=== PATIENT | male | born 1950 | race Caucasian/White ===

== ENCOUNTER 2025-05-07 13:08 | Outpatient (CLI) | payer MEDICARE, OTHER, SELFPAY ==
[2025-05-07 14:35] LABS: Prostate Specific Antigen 6.5 ng/mL (< OR = 4.0)
== END 2025-05-07 13:09 | disposition home or self-care (01) ==
PROVIDERS: Visit Provider Urology
DX: N40.1 Benign prostatic hyperplasia with lower urinary tract symptoms (principal)
CPT/HCPCS: 36415; 84153